=== PATIENT | female | born 1945 | race Caucasian/White ===

== ENCOUNTER 2016-11-11 07:56 | Day surgery (SDC) | payer BC ==
[2016-11-08 14:57] LABS: HEMOGLOBIN 14.2 g/dL (12.0-16.0)
[2016-11-08 15:05] LABS: HEMATOCRIT 44.2 % (36.0-48.0)
[2016-11-08 15:08] LABS: BUN (BLOOD UREA NITROGEN) 25 MG/DL (6-23); CALCIUM, SERUM 9.4 MG/DL (8.5-10.4); CHLORIDE, SERUM 105 MMOL/L (96-112); CO2 (CARBON DIOXIDE) 27 MMOL/L (24-34); CREATININE 1.08 MG/DL (0.55-1.02); GFR AFRICAN AMERICAN 61 ML/MIN (>=60); GFR NON AFRICAN AMERICAN 52 ML/MIN (>=60); SODIUM, SERUM 139 MMOL/L (135-148)
[2016-11-08 15:09] LABS: GLUCOSE, SERUM 117 MG/DL (60-99); POTASSIUM, SERUM 3.9 MMOL/L (3.5-5.3)
[~2016-11-11 07:56] MED LIST: BREO ELLIPTA INH; CELEXA40 MG PO; DIFLUNISAL500 MG PO; DOLOBID; HERBS; LORTAB10 PO; NORCO1 TA2 PO; NORCO1 TAB PO; P10 PO; PLAQ200B PO; PROAIR HFA INH; SKELAXIN8 PO; SPIRIVA INH; TOPXL50 PO; ULTRAM50 PO; VITAMIN B-121000 MC1 SL; VITAMIN D31000 UNIT PO; VITC500 PO; X5 PO; XANAX1 MG PO
== END 2016-11-11 13:26 | disposition home or self-care (01) ==
LOC: SDC 07:56
PROVIDERS: Ophthalmology
PROC: 08RK3JZ Replacement of Left Lens with Synthetic Substitute, Percutaneous Approach (ICD-10-PCS; principal; 2016-11-11 10:00)
DX: H25.12 Age-related nuclear cataract, left eye (principal); I10 Essential (primary) hypertension; J45.909 Unspecified asthma, uncomplicated; Z88.5 Allergy status to narcotic agent; Z88.2 Allergy status to sulfonamides; Z88.8 Allergy status to other drugs, medicaments and biological substances; Z90.710 Acquired absence of both cervix and uterus; Z98.890 Other specified postprocedural states
CPT/HCPCS: 80048; 85014; 85018; 93005; J2405; J3010